=== PATIENT | female | born 1955 | race Caucasian/White ===

== ENCOUNTER 2023-03-09 18:10 | Emergency (ER) | payer OTHER, BC ==
[~2023-03-09] VITALS: Ht 149.9 cm; Wt 63.5 kg
[~2023-03-09 18:10] MED LIST: ALLO100T PO; HYDR12.55; LIP20 PO; MECL-292 PO; METF-518 PO; OLME20TA74 PO; POTA8TAB66 PO
[2023-03-09 18:35] VITALS: BP_SYST 134; PULSE 90; RESP 22; TEMP 98.3; O2SAT 99
[2023-03-09] MEDS ORDERED: cephALEXin 500 MG CAPSULE PO ONE (19:15)
[2023-03-09] MEDS ORDERED: DICL20GE TP (19:45)
[2023-03-09] MEDS ORDERED: CEPH-548 PO (19:45)
[2023-03-09 20:19] VITALS: BP_SYST 134; PULSE 90; RESP 22; TEMP 98.3; O2SAT 99
== END 2023-03-09 20:19 | disposition home or self-care (01) ==
LOC: SED 18:10
DX: M17.11 Unilateral primary osteoarthritis, right knee (principal); R89.5 Abnormal microbiological findings in specimens from other organs, systems and tissues; Z79.899 Other long term (current) drug therapy
CPT/HCPCS: 99283

== ENCOUNTER 2023-04-14 16:48 | Emergency (ER) | payer OTHER, BC ==
[~2023-04-14] VITALS: Ht 152.4 cm; Wt 61.2 kg
[~2023-04-14 16:48] MED LIST changes: +CEPH-548 PO; +DICL20GE TP
[2023-04-14 16:56] VITALS: BP_SYST 159; PULSE 78; RESP 18; TEMP 97.5; O2SAT 98
[2023-04-14 17:29] LABS: BASOPHILS % (AUTO) 0.4 % (0.0-2.0); EOSINOPHILS # (AUTO) 0.1 K/uL (0.0-0.4); EOSINOPHILS % (AUTO) 1.4 % (0.0-4.0); HEMATOCRIT 37.2 % (36-48); HEMOGLOBIN 12.7 g/dL (12.0-16.0); LYMPHOCYTES # (AUTO) 1.9 K/uL (1.0-5.5); MEAN CORPUSCULAR HEMOGLOBIN 31 pg (27-31); MEAN CORPUSCULAR HGB CONC 34 % (32-36); MEAN CORPUSCULAR VOLUME 91 fL (79.0-98.0); MONOCYTES # (AUTO) 0.6 K/uL (0.0-1.0); MONOCYTES % (AUTO) 9.9 % (1.7-9.3); NEUTROPHILS % (AUTO) 53.3 % (40.0-70.0); PLATELET COUNT (AUTO) 174 K/uL (130-430); RED BLOOD CELL COUNT(AUTO) 4.11 MIL/uL (4.2-6.2); RED CELL DISTRIBUTION WIDTH 14.6 % (9.0-15.0); WHITE BLOOD COUNT (AUTO) 5.6 K/uL (4.8-10.8)
[2023-04-14 17:45] LABS: ANION GAP 9 (5-15); CALCIUM 9.1 mg/dL (8.4-11.0); CARBON DIOXIDE 27 mmol/L (23-29); CHLORIDE 107 mmol/L (98-107); CREATININE 0.85 mg/dL (0.55-1.30); GLUCOSE 95 mg/dL (74-106); POTASSIUM 4.4 mmol/L (3.5-5.1); SODIUM SERUM 143 mmol/L (136-145); UREA NITROGEN, BLOOD 15 mg/dL (8-21)
[2023-04-14 17:48] LABS: GFR AFRICAN AMERICAN 85 mL/min (>90); GFR NON AFRICAN-AMERICAN 70 mL/min (>90)
[2023-04-14] MEDS ORDERED: IBUP-1969 PO (18:45)
[2023-04-14 18:59] VITALS: BP_SYST 144; PULSE 77; RESP 17; TEMP 98; O2SAT 99
== END 2023-04-14 19:00 | disposition home or self-care (01) ==
LOC: SED 16:48
DX: I10 Essential (primary) hypertension (principal); E11.9 Type 2 diabetes mellitus without complications; Z79.899 Other long term (current) drug therapy
CPT/HCPCS: 36415; 70450-TC; 71045; 80048; 83880; 84484; 85025; 93005; 99285